=== PATIENT | male | born 1995 | race Caucasian/White ===

== ENCOUNTER 2018-04-04 12:50 | Emergency (ER) | payer BC ==
[~2018-04-04] VITALS: Ht 185.4 cm; Wt 97.5 kg
[2018-04-04] MEDS ORDERED: ZESTRIL20 MG PO (13:00)
[2018-04-04] MEDS ORDERED: XANAX 0.25 MG0.25 MG PO (13:05)
[2018-04-04] MEDS ORDERED: VISTARIL 25 MG25 M1 PO (13:07)
[2018-04-04 13:15] VITALS: BP 153/96
== END 2018-04-04 13:16 | disposition home or self-care (01) ==
LOC: M.ERS 12:50
DX: F41.9 Anxiety disorder, unspecified (principal); I10 Essential (primary) hypertension

== ENCOUNTER 2019-01-31 10:32 | Emergency (ER) | payer BC ==
[~2019-01-31] VITALS: Ht 185.4 cm; Wt 99.8 kg
[~2019-01-31 10:32] MED LIST: VISTARIL 25 MG25 M1 PO; XANAX 0.25 MG0.25 MG PO; ZESTRIL20 MG PO
[2019-01-31 11:06] LABS: ABSOLUTE BASOPHILS 0.1 thou/uL (0.0-0.2); ABSOLUTE EOSINOPHILS 0.2 thou/uL (0.0-0.7); ABSOLUTE LYMPHOCYTES 2.3 thou/uL (0.8-5.3); ABSOLUTE MONOCYTES 0.6 thou/uL (0.0-1.2); ABSOLUTE NEUTROPHILS 3.7 thou/uL (1.6-8.1); BASOPHILS 0.8 %; EOSINOPHILS 2.4 %; HEMATOCRIT 45.1 % (42.0-52.0); HEMOGLOBIN 15.6 gm/dL (14.0-18.0); LYMPHOCYTES 33.3 %; MCH 30.7 pg (26.0-34.0); MCHC 34.5 g/dL (28.0-37.0); MPV 8.3 fl. (7.2-11.1); NUCLEATED RBCS 0 /100WBC; PLATELET COUNT* 307 thou/uL (150-400); POLYS 54.5 %; RBC 5.07 mil/uL (4.50-6.00); RDW-CV 13.4 % (10.5-14.5); WBC 6.8 thou/uL (4.0-11.0)
[2019-01-31 11:19] LABS: URINE BILIRUBIN NEGATIVE (Negative); URINE BLOOD 1+ (Negative); URINE CLARITY CLEAR; URINE COLOR YELLOW; URINE GLUCOSE-RANDOM NEGATIVE (Negative); URINE KETONES NEGATIVE (Negative); URINE LEUKOCYTES-REFLEX NEGATIVE (Negative); URINE NITRITE-REFLEX NEGATIVE (Negative); URINE PROTEIN 1+ (Negative); URINE SPECIFIC GRAVITY >= 1.030 (1.005-1.030); URINE UROBILINOGEN 0.2 E.U./dl (0.2-1.0)
[2019-01-31 11:24] LABS: CREATININE 0.9 mg/dL (0.6-1.3); POTASSIUM 4.1 mmol/L (3.5-5.1); TOTAL BILIRUBIN 0.4 mg/dL (<0.1-1.0); TOTAL PROTEIN 7.8 g/dL (6.4-8.2)
[2019-01-31 11:27] LABS: SQUAMOUS 0-3 Few /LPF (0-3)
[2019-01-31 11:28] LABS: FINE GRANULAR CASTS 0-3 Few /LPF (None Seen); HYALINE CASTS 4-10 Moderate /LPF (None Seen); MUCUS >6 Heavy strn/LPF (None Seen); URINE RBC 0-2 Rare /HPF (0-2); URINE WBC-REFLEX 0-5 Rare /HPF (0-5)
[2019-01-31 11:29] LABS: CRYSTALS None Seen /LPF (None Seen)
[2019-01-31] MEDS ORDERED: KEFLEX500 M1 PO (13:34)
[2019-01-31 14:02] VITALS: BP 136/87
== END 2019-01-31 13:45 | disposition home or self-care (01) ==
LOC: M.ERS 10:32
PROVIDERS: Physician Assistant
DX: N39.0 Urinary tract infection, site not specified (principal); I10 Essential (primary) hypertension; Z88.1 Allergy status to other antibiotic agents